=== PATIENT | male | born 1980 | race African-American/Black ===

== ENCOUNTER 2016-07-01 00:12 | Inpatient (IN) ==
[2016-07-01] MEDS ORDERED: ZOFRAN ODT PO ONE (00:47)
--- NOTE | 2016-07-01 01:08 | PROVIDER DOCUMENTATION ---
HPI-EENT General - General Chief Complaint: Fever Stated Complaint: CHEST PAIN Time Seen by Provider: 07/01/16 00:46 Source: patient Allergies/Adverse Reactions: Patient Allergies Allergy/AdvReac Type Severity Reaction Status Date / Time No Known Allergies Allergy Verified 11/07/15 23:51 Home Medications: Home Medication List Medication Instructions Recorded Confirmed Last Taken Type Metoprolol [Lopressor] 25 mg PO DAILY #30 tablet 09/07/14 11/07/15 11/03/15 Rx Oxycodone HCl/Acetaminophen 1 each PO Q4H PRN PRN #20 tablet 11/08/15 Unknown Rx [Percocet 7.5-325 mg Tablet] - History of Present Illness-EENT General Nature of Presenting Problem: 36 y/o BM presents to the ED with c/o sore throat x 3 days. Pt states was seen by his PCP on Friday (Dr. Portia Escobar) and given steroid IM, two other unknown shots, and an Rx for Zpack. Pt states that he has been taking medication as directed. 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 Also states generalized weakness and heart racing. Review of Systems - Adult - REVIEW OF SYSTEMS - ADULT Constitutional: reports: see HPI, fever. denies: chills Eyes: reports: no symptoms reported. denies: blurred vision, double vision Ears, Nose, Mouth & Throat: reports: see HPI, throat pain. denies: ear pain, loose teeth Cardiovascular: reports: see HPI, palpitations. denies: chest pain Respiratory: reports: no symptoms reported. denies: cough, dyspnea on exertion , shortness of breath Gastrointestinal: reports: see HPI, nausea, vomiting. denies: abdominal pain, diarrhea Genitourinary: reports: frequency. denies: dysuria, hematuria Musculoskeletal: reports: no symptoms reported. denies: joint pain, joint swelling Integumentary: reports: no symptoms reported. denies: nail changes, rash Neurological: reports: no symptoms reported. denies: numbness, paresthesia Psychiatric: reports: no symptoms reported Endocrine: reports: no symptoms reported. denies: cold intolerance, heat intolerance Hematologic/Lymphatic: reports: no symptoms reported. denies: easy bruising, prolonged bleeding Allergic/Immunologic: reports: no symptoms reported All Other Systems: Reviewed and Negative Past History - Adult - PAST MEDICAL HISTORY-ADULT Review of Records: reports: Nursing Assessment Review, Medications Reviewed Cardiovascular: reports: other (SVT) Psychiatric: reports: anxiety - PRIOR SURGERIES/PROCEDURES Surgical/Procedure History: reports: orthopedic (extremity) (patellar tendon) - IMMUNIZATION STATUS Childhood Immunizations: See Nurse Assessment Flu Vaccine: See Nurse Assessment - SOCIAL HISTORY Smoking: denies Physical Exam- EENT - Physical Exam EENT Initial Vital Signs Reviewed: Yes General Appearance: alert, moderate distress Eye Exam: bilateral eye: normal inspection Ear Exam: bilateral ear: auricle normal Nasal Exam: normal inspection. negative: sinus tenderness Throat Exam: pharynx swelling, tonsillar swelling, uvula swelling, other ( extreme swelling in pharynx; no ability to see past uvula and tonsils). negative: pharynx normal (erythema with white plaques throughout mouth.) Neck: supple, normal inspection, lymphadenopathy Respiratory: lungs clear, normal breath sounds. negative: crackles, rales, rhonchi, stridor, wheezing Cardiovascular: tachycardia. negative: bradycardia Abdominal Exam: normal bowel sounds, soft, tenderness (generalized, mild). negative: distended, guarding, rigid Lymphatic: cervical node tenderness Back Exam: normal inspection Extremity: normal inspection Integumentary: normal color, normal turgor Neurologic: negative: aphasia Psych/Mental Status: normal mood/affect Progress - PLAN OF CARE/RESULTS Progress/Plan/Lab Results: Vital Signs - 8 hr 07/01/16 00:17 07/01/16 03:49 Temperature 100.8 F H 98.6 F Pulse Rate 107 H 107 H Respiratory Rate 20 18 Blood Pressure 155/104 146/95 O2 Sat by Pulse Oximetry 100 96 Laboratory Results - last 24 hr 07/01/16 07/01/16 07/01/16 00:30 00:30 01:05 WBC RBC Hgb Hct MCV MCH MCHC RDW Std Deviation Plt Count MPV Immature Gran % (Auto) Neut % (Auto) Lymph % (Auto) [place] % (Auto) Eos % (Auto) Baso % (Auto) Immature Gran # (Auto) Neut # (Auto) Lymph # (Auto) [place] # (Auto) Eos # (Auto) Baso # (Auto) PT INR APTT (Factor Assay) Specimen Type Sample Site pH pCO2 pO2 HCO3 Base Excess Oxyhemoglobin ABG O2 Sat (Calculated) ABG O2 Saturation ABG Carboxyhemoglobin ABG Methemoglobin Erick Test A-a O2 Difference Total Hemoglobin Lactate Blood Gas Modality FiO2 % Sodium Potassium Chloride Carbon Dioxide Anion Gap BUN Creatinine BUN/Creatinine Ratio Glucose Estimat Average Glucose Hemoglobin A1c Calculated Osmolality Calcium Total Bilirubin AST ALT Alkaline Phosphatase Creatine Kinase Troponin T Total Protein Albumin Globulin Albumin/Globulin Ratio Plasma Lactate Urine Source Cancelled Urine Color Cancelled Urine Clarity Urine Turbidity Cancelled Urine pH Cancelled Ur Specific [place] Cancelled Urine Protein Cancelled Ur Glucose (Stick) Cancelled Urine Ketones Ur Ketones (Stick) Cancelled Urine Blood Cancelled Urine Nitrite Cancelled Urine Bilirubin Cancelled Urine Urobilinogen Urobilinogen Dipstick Cancelled Urine Leukocytes Cancelled Urine WBC (Auto) Cancelled Urine RBC (Auto) Cancelled U Epithel Cells (Auto) Cancelled Urine Bacteria (Auto) Cancelled Urine Microscopic RBC Urine WBC Urine Microscopic WBC Ur Epithelial Cells Urine Bacteria Urine Glucose Acetone Level Influenza A (Rapid) NEGATIVE Influenza B (Rapid) NEGATIVE Group A Strep Rapid NEGATIVE 07/01/16 07/01/16 07/01/16 01:05 01:07 01:07 WBC RBC Hgb Hct MCV MCH MCHC RDW Std Deviation Plt Count MPV Immature Gran % (Auto) Neut % (Auto) Lymph % (Auto) [place] % (Auto) Eos % (Auto) Baso % (Auto) Immature Gran # (Auto) Neut # (Auto) Lymph # (Auto) [place] # (Auto) Eos # (Auto) Baso # (Auto) PT INR APTT (Factor Assay) Specimen Type Sample Site pH pCO2 pO2 HCO3 Base Excess Oxyhemoglobin ABG O2 Sat (Calculated) ABG O2 Saturation ABG Carboxyhemoglobin ABG Methemoglobin Erick Test A-a O2 Difference Total Hemoglobin Lactate Blood Gas Modality FiO2 % Sodium Potassium Chloride Carbon Dioxide Anion Gap BUN Creatinine BUN/Creatinine Ratio Glucose Estimat Average Glucose Hemoglobin A1c Calculated Osmolality Calcium Total Bilirubin AST ALT Alkaline Phosphatase Creatine Kinase 177 Troponin T < 0.010 Total Protein Albumin Globulin Albumin/Globulin Ratio Plasma Lactate Urine Source CLEAN CATCH Urine Color YELLOW Urine Clarity CLEAR Urine Turbidity Urine pH 5.0 Ur Specific [place] 1.015 Urine Protein TRACE A Ur Glucose (Stick) Urine Ketones 3+(Large) A Ur Ketones (Stick) Urine Blood 1+ A Urine Nitrite NEGATIVE Urine Bilirubin NEGATIVE Urine Urobilinogen NORMAL Urobilinogen Dipstick Urine Leukocytes Urine WBC (Auto) Urine RBC (Auto) U Epithel Cells (Auto) Urine Bacteria (Auto) Urine Microscopic RBC <10 Urine WBC NEGATIVE Urine Microscopic WBC <10 Ur Epithelial Cells <10 Urine Bacteria 1+ Urine Glucose 3+(500 mg/dL) A Acetone Level Influenza A (Rapid) Influenza B (Rapid) Group A Strep Rapid 07/01/16 07/01/16 07/01/16 01:07 01:07 01:07 WBC 21.48 H RBC 5.55 Hgb 15.8 Hct 47.6 MCV 85.8 MCH 28.5 MCHC 33.2 RDW Std Deviation 12.2 Plt Count 408 H MPV 12.0 H Immature Gran % (Auto) 0.2 Neut % (Auto) 85.9 H Lymph % (Auto) 9.1 L [place] % (Auto) 4.4 Eos % (Auto) 0.0 Baso % (Auto) 0.4 Immature Gran # (Auto) 0.05 H Neut # (Auto) 18.45 H Lymph # (Auto) 1.95 [place] # (Auto) 0.94 H Eos # (Auto) 0.01 Baso # (Auto) 0.08 PT 14.1 INR 1.06 APTT (Factor Assay) 25.4 Specimen Type Sample Site pH pCO2 pO2 HCO3 Base Excess Oxyhemoglobin ABG O2 Sat (Calculated) ABG O2 Saturation ABG Carboxyhemoglobin ABG Methemoglobin Erick Test A-a O2 Difference Total Hemoglobin Lactate Blood Gas Modality FiO2 % Sodium 135 L Potassium 4.8 Chloride 88 L Carbon Dioxide 16 L Anion Gap 28 BUN 23 H Creatinine 1.3 H BUN/Creatinine Ratio 18 Glucose 682 H* Estimat Average Glucose Hemoglobin A1c Calculated Osmolality 316 Calcium 10.7 H Total Bilirubin 0.50 AST 15 ALT 39 Alkaline Phosphatase 158 H Creatine Kinase Troponin T Total Protein 9.4 H Albumin 5.3 H Globulin 4.0 Albumin/Globulin Ratio 1.0 Plasma Lactate Urine Source Urine Color Urine Clarity Urine Turbidity Urine pH Ur Specific [place] Urine Protein Ur Glucose (Stick) Urine Ketones Ur Ketones (Stick) Urine Blood Urine Nitrite Urine Bilirubin Urine Urobilinogen Urobilinogen Dipstick Urine Leukocytes Urine WBC (Auto) Urine RBC (Auto) U Epithel Cells (Auto) Urine Bacteria (Auto) Urine Microscopic RBC Urine WBC Urine Microscopic WBC Ur Epithelial Cells Urine Bacteria Urine Glucose Acetone Level Influenza A (Rapid) Influenza B (Rapid) Group A Strep Rapid 07/01/16 07/01/16 07/01/16 01:07 01:07 03:06 WBC RBC Hgb Hct MCV MCH MCHC RDW Std Deviation Plt Count MPV Immature Gran % (Auto) Neut % (Auto) Lymph % (Auto) [place] % (Auto) Eos % (Auto) Baso % (Auto) Immature Gran # (Auto) Neut # (Auto) Lymph # (Auto) [place] # (Auto) Eos # (Auto) Baso # (Auto) PT INR APTT (Factor Assay) Specimen Type ARTERIAL Sample Site L RADIAL pH 7.31 L pCO2 32 L pO2 80 HCO3 17.9 L Base Excess -8.9 L Oxyhemoglobin 94.1 L ABG O2 Sat (Calculated) 20.7 ABG O2 Saturation 97.8 ABG Carboxyhemoglobin 2.50 ABG Methemoglobin 1.3 Erick Test YES A-a O2 Difference 30.0 Total Hemoglobin 15.6 Lactate 2.10 Blood Gas Modality ROOM AIR FiO2 % 21.0 Sodium Potassium Chloride Carbon Dioxide Anion Gap BUN Creatinine BUN/Creatinine Ratio Glucose Estimat Average Glucose 235 Hemoglobin A1c 9.8 H Calculated Osmolality Calcium Total Bilirubin AST ALT Alkaline Phosphatase Creatine Kinase Troponin T Total Protein Albumin Globulin Albumin/Globulin Ratio Plasma Lactate Urine Source Urine Color Urine Clarity Urine Turbidity Urine pH Ur Specific [place] Urine Protein Ur Glucose (Stick) Urine Ketones Ur Ketones (Stick) Urine Blood Urine Nitrite Urine Bilirubin Urine Urobilinogen Urobilinogen Dipstick Urine Leukocytes Urine WBC (Auto) Urine RBC (Auto) U Epithel Cells (Auto) Urine Bacteria (Auto) Urine Microscopic RBC Urine WBC Urine Microscopic WBC Ur Epithelial Cells Urine Bacteria Urine Glucose Acetone Level SMALL A Influenza A (Rapid) Influenza B (Rapid) Group A Strep Rapid 07/01/16 03:28 WBC RBC Hgb Hct MCV MCH MCHC RDW Std Deviation Plt Count MPV Immature Gran % (Auto) Neut % (Auto) Lymph % (Auto) [place] % (Auto) Eos % (Auto) Baso % (Auto) Immature Gran # (Auto) Neut # (Auto) Lymph # (Auto) [place] # (Auto) Eos # (Auto) Baso # (Auto) PT INR APTT (Factor Assay) Specimen Type Sample Site pH pCO2 pO2 HCO3 Base Excess Oxyhemoglobin ABG O2 Sat (Calculated) ABG O2 Saturation ABG Carboxyhemoglobin ABG Methemoglobin Erick Test A-a O2 Difference Total Hemoglobin Lactate Blood Gas Modality FiO2 % Sodium Potassium Chloride Carbon Dioxide Anion Gap BUN Creatinine BUN/Creatinine Ratio Glucose Estimat Average Glucose Hemoglobin A1c Calculated Osmolality Calcium Total Bilirubin AST ALT Alkaline Phosphatase Creatine Kinase Troponin T Total Protein Albumin Globulin Albumin/Globulin Ratio Plasma Lactate 2.6 H Urine Source Urine Color Urine Clarity Urine Turbidity Urine pH Ur Specific [place] Urine Protein Ur Glucose (Stick) Urine Ketones Ur Ketones (Stick) Urine Blood Urine Nitrite Urine Bilirubin Urine Urobilinogen Urobilinogen Dipstick Urine Leukocytes Urine WBC (Auto) Urine RBC (Auto) U Epithel Cells (Auto) Urine Bacteria (Auto) Urine Microscopic RBC Urine WBC Urine Microscopic WBC Ur Epithelial Cells Urine Bacteria Urine Glucose Acetone Level Influenza A (Rapid) Influenza B (Rapid) Group A Strep Rapid Orders Category Date Time Status Admit - [facility] Routine AdmDCTranf 07/01/16 03:20 Ordered Activity - Bed Rest with BRP ORDERED Care 07/01/16 03:20 Active Resuscitation Status Routine Care 07/01/16 03:20 Ordered Saline Loc DIRECTED Care 07/01/16 00:55 Completed Vital Signs Order Q 8-HR ASSESS Care 07/01/16 03:20 Active NPO Diet 07/01/16 00:55 Completed NPO Diet 07/01/16 03:26 Active CHEST-2 VIEWS [RAD] Stat Exams 07/01/16 00:21 Taken NECK W/CONTRAST [CT] Stat Exams 07/01/16 02:08 Taken A1C HGB W EST AVG GLUCOSE [CHEM] Stat Lab 07/01/16 01:07 Completed ABG [RESP] Routine Lab 07/01/16 03:06 Completed BASIC METABOLIC PANEL [CHEM] Timed Lab 07/01/16 12:00 Ordered BLOOD CULTURE [BLDCUL] Stat Lab 07/01/16 02:37 Ordered CBC WITH ELECTRONIC DIFF [HEME] Stat Lab 07/01/16 01:07 Completed CK PROFILE [SP CHEM] Stat Lab 07/01/16 01:07 Completed COMPREHENSIVE METABOLIC PANEL [CHEM] Stat Lab 07/01/16 01:[address] Stat Lab 07/01/16 00:[address] Stat Lab 07/01/16 00:30 Completed Ketone [ACETONE SERUM] [CHEM] Stat Lab 07/01/16 01:07 Completed LACTATE, PLASMA [CHEM] Stat Lab 07/01/16 03:28 Completed PT [PROTIME WITH INR PL] [COAG] Stat Lab 07/01/16 01:[address] [COAG] Stat Lab 07/01/16 01:07 Completed TROPONIN T Stat Lab 07/01/16 01:[address] W/POSS RFLX CULT [URINALYSIS] Stat Lab 07/01/16 01:05 Completed 0.9% Sodium Chloride Inj [Ns] 1,000 ml Med 07/01/16 03:20 Active IV 250 mls/hr 0.9% Sodium Chloride Inj [Ns] 1,000 ml Med 07/01/16 02:36 Discontinued IV 999 mls/hr Acetaminophen [Tylenol] Med 07/01/16 03:20 Active 650 mg PO Q6H PRN PRN CefTRIAXONE 1 GM/NS [Rocephin 1 gm/Ns] Med 07/01/16 03:30 Active 1 gm in 50 ml IV Q24H CefTRIAXONE 2 GM/NS [Rocephin 2 gm/Ns] Med 07/01/16 03:18 Discontinued 2 gm in 50 ml IV NOW Insulin Human Reg Dose ([address] [Humulin R Dose ([place] Med 07/01/16 03:20 Discontinued )] 1 dose SUBQ NOW ONE Insulin Human Regular ([place] [Humulin R ([place])] Med 07/01/16 03:28 Discontinued 1 units .ROUTE .STK-MED ONE Insulin Human Regular [Humulin R] Med 07/01/16 03:18 Discontinued 10 unit SUBQ NOW ONE Ketorolac [Toradol] Med 07/01/16 01:35 Discontinued 30 mg IV NOW ONE Metoclopramide [Reglan] Med 07/01/16 01:35 Discontinued 10 mg IV NOW ONE Morphine Med 07/01/16 01:35 Discontinued 2 mg IV NOW ONE Morphine Med 07/01/16 03:20 Active 2 mg IV Q2H PRN PRN Ondansetron Odt [Zofran Odt] Med 07/01/16 00:47 Discontinued 4 mg PO NOW ONE Ondansetron [Zofran] Med 07/01/16 03:20 Active 4 mg IV Q4H PRN PRN EKG [EKG] Stat Ther 07/01/16 01:07 Draft Transfer/Admit Order [TRANSFER] Routine Transfer 07/01/16 03:27 Ordered Result Diagrams: 07/01/16 01:07 07/01/16 01:07 - CHANGE OF SHIFT REPORT (ED Provider) Report Given and Care Transferred to:: Dr. Vazquez Time of Transfer: 03:10 Items Pending: Labs, CT/MRI Results Comment: new onset diabetes, pharyngitis/tonsillitis Departure - Departure Time of Disposition Decision: 04:12 DIAGNOSIS: Sepsis Qualifiers: Sepsis type: Streptococcus, unspecified Qualified Code(s): A40.9 - Streptococcal sepsis, unspecified; A40 - Streptococcal sepsis DM (diabetes mellitus) type 2, uncontrolled, with ketoacidosis Qualifiers: Diabetes mellitus complication detail: without coma Diabetes mellitus retirement insulin use: without superintendent terminal use Qualified Code(s): E13.10 - Other specified diabetes mellitus with ketoacidosis without coma Disposition: ADMITTED INPATIENT 09 Certified Medical Emergency: Emergent Condition: Fair - Critical Care Note This patient required my direct personal management.: No Attestation - Physician/ YAMEL Attestation Patient care was provided by Advanced Practice Provider:: Yes Advanced Practice Provider:: Amy Carrillo Advanced Practice Provider documentation review:: The Mid-level provider documentation, treatment plan and medical decision making was reviewed by the physician who agrees with all treatment and medical decision making by the MLP.
--- NOTE | 2016-07-01 01:20 | EKG Report ---
Test Performed on : 07/01/2016 01:09:57 AM Test Reason : Chest Pain Blood Pressure : / mmHG Vent. Rate : 113 BPM Atrial Rate : 113 BPM P-R Int : 162 ms QRS Dur : 090 ms QT Int : 352 ms P-R-T Axes : 046 061 012 degrees QTc Int : 482 ms Sinus tachycardia. Otherwise normal ECG When compared with ECG of 07-SEP-2014 14:42, No significant change was found Unconfirmed Result
[2016-07-01] MEDS ORDERED: TORADOL IV ONE (01:35)
[2016-07-01] MEDS ORDERED: REGLAN IV ONE (01:35)
[2016-07-01] MEDS ORDERED: MORPHINE IV ONE (01:35)
[2016-07-01 01:42] LABS: BASO% 0.4 % (0.0-0.8); EOS# 0.01 X1000 (0.0-0.7); HEMATOCRIT 47.6 % (42.0-52.0); HEMOGLOBIN 15.8 g/dL (14.0-18.0); IMM GRAN# 0.05 X1000 (0.0-0.04); IMM GRAN% 0.2 % (0.0-0.5); LYMPH# 1.95 X1000 (1.2-3.4); LYMPH% 9.1 % (20.5-51.1); MANUAL DIFF NEEDED? NO; MCH 28.5 PG (27-31); MCHC 33.2 g/dL (33-37); MCV 85.8 FL (81-99); MONO# 0.94 X1000 (0.11-0.59); MONO% 4.4 % (1.7-9.3); NEUT% 85.9 % (42.2-75.2); PLT 408 X1000 (130-400); RBC 5.55 XMIL (4.7-6.1)
[2016-07-01 01:54] LABS: URINE CULTURE PL NEEDED? NO; URINE SOURCE CLEAN CATCH
[2016-07-01 02:10] LABS: BILIRUBIN URINE NEGATIVE (NEGATIVE); BLOOD URINE 1+ (NEGATIVE); CLARITY CLEAR (CLEAR); COLOR YELLOW; LEUKOCYTES URINE NEGATIVE (NEGATIVE); NITRITE URINE NEGATIVE (NEGATIVE); PROTEIN URINE TRACE mg/dL (NEGATIVE); SP GRAVITY URINE 1.015; URINE EPITHELIAL CELLS <10 /HPF (<10); URINE RBC <10 /HPF (<10); URINE WBC <10 /HPF (<10); UROBILINOGEN URINE NORMAL
[2016-07-01 02:22] LABS: INR 1.06 (0.86-1.15); PROTIME 14.1 Seconds (12.1-15.5)
[2016-07-01 02:23] LABS: PTT PL 25.4 Seconds (22.6-43.9)
[2016-07-01] MEDS ORDERED: NS 1,000 ML IV ONE ×3 (02:36→11:09)
[2016-07-01 02:38] LABS: CHLORIDE 88 mmol/L (98-107); POTASSIUM 4.8 mmol/L (3.5-5.1); SODIUM 135 mmol/L (136-145)
[2016-07-01 02:39] LABS: ALBUMIN 5.3 g/dL (3.5-5.0); ALKALINE PHOSPHATASE 158 U/L (32-122); BUN 23 mg/dL (8-22); CALCIUM 10.7 mg/dL (8.8-10.2); GOT 15 U/L (10-34); GPT 39 U/L (10-44); TCO2 16 mmol/L (25-35); TOTAL PROTEIN 9.4 g/dL (6.3-8.3)
[2016-07-01 02:41] LABS: COSMO 316
[2016-07-01 02:42] LABS: AGAP 28
[2016-07-01] MEDS ORDERED: ROCEPHIN 2 GM/NS 2 GM/50 ML IVPB IV ONE (03:18)
[2016-07-01] MEDS ORDERED: HUMULIN R SUBQ ONE (03:18)
[2016-07-01] MEDS ORDERED: TYLENOL PO PRN (03:20)
[2016-07-01] MEDS ORDERED: HUMULIN R DOSE (PARKWAY) SUBQ ONE (03:20)
[2016-07-01] MEDS ORDERED: ZOFRAN IV PRN (03:20)
[2016-07-01] MEDS ORDERED: MORPHINE IV PRN ×2 (03:20→07:14)
[2016-07-01 03:25] LABS: BE -8.9 mmoll (-3.0-3.0); BLOOD TYPE ARTERIAL; DRAW SITE L RADIAL; METHB 1.3 % (0.0-1.5); O2(CT) 20.7 mL/dL (15.0-23.0); PCO2(98.6) 32 mmHg (35-45); PO2(98.6) 80 mmHg (60-100); SAMPLE BLOOD; SAO2 97.8 % (95.0-100.0); THB 15.6 g/dL (11.5-17.4); pH(98.6) 7.31 (7.35-7.45)
[2016-07-01 03:27] LABS: ALLEN TEST YES; MODALITY ROOM AIR
[2016-07-01] MEDS ORDERED: HUMULIN R (PARKWAY) ONE (03:28)
[2016-07-01 03:39] LABS: HEMOGLOBIN A1C 9.8 % (4.8-6.0)
[2016-07-01] MEDS: ROCEPHIN 1 GM/NS 1 GM/50 ML IVPB IV SCH (06:26)
[2016-07-01] MEDS ORDERED: PNEUMOVAX 23 IM ONE (07:04)
--- NOTE | 2016-07-01 07:53 | Diag Imaging Result Document ---
PROCEDURE NAME: CHEST-2 VIEWS - 07/01/2016 FRONTAL AND LATERAL CHEST, TWO VIEWS: COMPARISON: Compared to 09/20/2014. FINDINGS: The lungs are well expanded. The heart is not enlarged. The vessels are not distended. There are no infiltrates. No pleural effusions. IMPRESSION: No pneumonia.
--- NOTE | 2016-07-01 08:08 | Diag Imaging Result Document ---
PROCEDURE NAME: NECK W/CONTRAST - 07/01/2016 CT NECK WITH INTRAVENOUS CONTRAST: FINDINGS: No sinus opacification. No air fluid levels. Normal parotid and submandibular glands. Normal larynx and thyroid. Mildly prominent tonsillar tissue. No precervical soft tissue swelling. Normal epiglottis. There is a tiny 2-3 mm nodular density in the left lung apex. The apices are otherwise normal. There are scattered small lymph nodes in the neck. No abscess. IMPRESSION: 1. There are multiple lymph nodes scattered bilaterally within the neck. 2. Mildly prominent tonsils. 3. No abscess. A preliminary report was given at 3:34 a.m..
[2016-07-01 10:38] LABS: HEMATOCRIT 44.9 % (42.0-52.0); HEMOGLOBIN 14.9 g/dL (14.0-18.0); MCH 28.5 PG (27-31); MCHC 33.2 g/dL (33-37); MCV 85.9 FL (81-99); MPV 11.8 FL (7.4-10.4); RBC 5.23 XMIL (4.7-6.1)
[2016-07-01 11:07] LABS: AGAP 23; CHLORIDE 93 mmol/L (98-107); POTASSIUM 4.8 mmol/L (3.5-5.1); SODIUM 134 mmol/L (136-145); TCO2 18 mmol/L (25-35)
[2016-07-01 11:08] LABS: BUN 25 mg/dL (8-22); CALCIUM 9.8 mg/dL (8.8-10.2); COSMO 290
[2016-07-01] MEDS ORDERED: MAGNESIUM SULFATE 2 GM/S.W.I. 2 GM/50 ML IVPB IV PRN (11:18)
[2016-07-01] MEDS ORDERED: SODIUM PHOSPHATE 30 MMOL in D5W 250 ML IV PRN (11:18)
[2016-07-01] MEDS ORDERED: HUMULIN R IV ONE (11:18)
[2016-07-01] MEDS ORDERED: HUMULIN R 100 UNIT in NS 99 ML IV SCH (11:18)
[2016-07-01] MEDS ORDERED: D50W SYRINGE IV PRN (11:18)
[2016-07-01] MEDS: HUMALOG DOSE (PARKWAY) SUBQ SCH ×3 (11:35→21:05)
[2016-07-01] MEDS ORDERED: DIFLUCAN 200 MG/NS 200 MG/100 ML IVPB IV ONE (11:53)
[2016-07-01] MEDS ORDERED: SODIUM CHLORIDE 0.9% INJ SCH (12:00)
[2016-07-01] MEDS ORDERED: MYCOSTATIN SUSP PO ONE (12:00)
--- NOTE | 2016-07-01 12:43 | HISTORY AND PHYSICAL ---
Delete please MTDD
[2016-07-01] MEDS: PROTONIX IV SCH (13:04)
[2016-07-01] MEDS: NS 1,000 ML IV SCH ×2 (13:04→19:28)
[2016-07-01 13:07] LABS: BE -7.2 mmoll (-3.0-3.0); BLOOD TYPE ARTERIAL; METHB 1.4 % (0.0-1.5); O2(CT) 20.6 mL/dL (15.0-23.0); PCO2(98.6) 31 mmHg (35-45); PO2(98.6) 83 mmHg (60-100); SAMPLE BLOOD; SAO2 97.8 % (95.0-100.0); THB 15.5 g/dL (11.5-17.4); pH(98.6) 7.35 (7.35-7.45)
[2016-07-01 13:13] LABS: ALLEN TEST YES; DRAW SITE L RADIAL; MODALITY ROOM AIR
--- NOTE | 2016-07-01 13:34 | HISTORY AND PHYSICAL ---
DATE OF ADMISSION: 07/01/2016. CHIEF COMPLAINT: 1. Sore throat. 2. Chest pain. 3. Generalized weakness. HISTORY OF PRESENT ILLNESS: This is a 36-year-old, male with a prior history of hypertension, chronic pain, who presented to the emergency room complaining of increasing sore throat with chest pain that he describes as clavicular up into the neck, as well as generalized weakness. He states he was seen at his primary care physician's office on Friday. Given 3 shots, 1 that he feels was a steroid, as well as a Z-Gui. He has been taking the medication with symptoms worsening, developing vomiting and palpitations prior to coming to the emergency room. He did have a temperature of 100.8 degrees on arrival with a heart rate of 113. An EKG revealed a sinus tachycardia. A CT of the neck revealed multiple lymph nodes scattered bilaterally within the neck with mildly prominent tonsils with a normal larynx, thyroid, epiglottis , and no precervical soft tissue swelling. No abscess. White count was noted to be 21 with a blood sugar of 682 and a hemoglobin A1c of 9.8 as well as acetone positive. He was given a liter of fluid along with 10 units of regular insulin, Rocephin, and admitted for further evaluation and treatment. PAST MEDICAL HISTORY: 1. Hypertension. 2. Chronic pain. 3. SVT. PAST SURGICAL HISTORY: Patellar tendon repair. SOCIAL HISTORY: Denies alcohol, tobacco, or illicit drug use. ALLERGIES: No known drug allergies. HOME MEDICATIONS: 1. Ambien 10 mg at bedtime. 2. Phenergan 5 mL every 6 hours p.r.n. 3. Lopressor 100 p.o. b.i.d. 4. Alprazolam 1 mg t.i.d. 5. Oxycodone ER 40 mg b.i.d. 6. Singulair 10 daily. 7. Percocet 7.5 every 4 hours p.r.n. REVIEW OF SYSTEMS: A 14 point review of systems is discussed with the patient, with pertinent positives stated in the History of Present Illness. He denied dizziness, syncope, diarrhea, constipation, black or bloody vomitus, black or bloody stools, any PND, orthopnea, any hematuria, dysuria, polyuria, increased thirst. PHYSICAL EXAMINATION: GENERAL: This is a 36-year-old, male, who is lying in the bed. PSYCH: In no distress. VITAL SIGNS: Blood pressure was 162/94 with a heart rate of 102. Respirations are 20, temperature is 97.7 degrees oral with a room air saturation of 98%. HEENT: Head is normocephalic, atraumatic. Pupils equal, round, react to light. EOMs are intact. Sclerae anicteric. Mucous membranes are moist with white plaques noted to membranes, tongue, throat He does have pharyngeal tonsillar swelling with some uvular swelling. NECK: Supple with submandibular and tonsillar lymph nodes palpated. NECK: Supple with trachea midline. CARDIOVASCULAR: Regular rate and rhythm S1, S2 appreciated. PULMONARY: Breath sounds are clear. No increased work of breathing noted. GASTROINTESTINAL: Abdomen has some mild epigastric tenderness with he is nondistended with bowel sounds in all 4 quadrants. BACK: No CVAT. No spine tenderness. EXTREMITIES: No clubbing, cyanosis, or edema. Calves nontender and pulses are palpable x4. SKIN: Warm and dry. No rashes or lesions noted. DIAGNOSTICS: CBC: WBC is 21.4 with hemoglobin 15.8, hematocrit 47.6 and platelets of 408,000. Chem: Sodium is 135 with a potassium of 4.8, BUN 23, creatinine 1.3 with a glucose of 682. Lactate is 2.6 with an A1c of 9.8. Acetone is small flu A and B and rapid strep were negative. ABGs: PH is 7.31, with a pCO2 of 32, PO2 of 80, a bicarb of 17.9 with a lactate of 2.1 on room air. Blood cultures: Pending. Throat cultures: Pending. CT of the neck: As stated above. ASSESSMENT AND PLAN: 1. Diabetic ketoacidosis and new onset diabetes. The patient states that he has never been told that he had an elevated blood sugar or any problems with his blood sugars and blood sugars over the last 2 years on previous emergency room visits have been 99-170. He has a family history remotely in a cousin. As he is in diabetic ketoacidosis, we will give another liter IV hydration and continue with hydration where he will be placed on diabetic ketoacidosis protocol. 2. Acute kidney injury. This is most likely secondary to intervascular volume depletion secondary to diabetic ketoacidosis. We will hydrate and trend labs. 3. Systemic inflammatory response syndrome. Likely sepsis most likely secondary to tonsillitis. Blood cultures are pending as well as a throat culture and rapid strep was negative. We will continue with IV hydration as well as IV Rocephin. A CT of the neck revealed no abscess, just enlarged tonsils. We will continue to follow this. We will trend labs. 4. Hypertension. We will continue his Lopressor. 5. Chronic pain. Once his nausea and vomiting subside, we will add his home medications on. 6. Nausea and vomiting. We will give IV Zofran. Start with diabetic clear liquids and advance as tolerated. 7. New onset diabetes mellitus. We will arrange for a dietitian to see the patient for diabetic teaching. Further treatments pending hospital course. Thank you. Dictated by FROYLAN Edgar for Bruce Clements MD cc: FROYLAN Edgar MD likely has oral candidiasis related to uncontrolled diabetes, agree with early DKA and will place on insulin gtt as above [place] MTDD
[2016-07-01 15:29] LABS: AGAP 19; BUN 20 mg/dL (8-22); CALCIUM 9.1 mg/dL (8.8-10.2); CHLORIDE 98 mmol/L (98-107); COSMO 285; MAGNESIUM 2.7 mg/dL (1.5-2.7); POTASSIUM 3.9 mmol/L (3.5-5.1); SODIUM 135 mmol/L (136-145); TCO2 17 mmol/L (25-35)
[2016-07-01] MEDS: MYCOSTATIN SUSP PO SCH ×2 (16:09→21:05)
[2016-07-01 20:31] LABS: AGAP 17; BUN 18 mg/dL (8-22); CALCIUM 9.4 mg/dL (8.8-10.2); CHLORIDE 99 mmol/L (98-107); COSMO 279; MAGNESIUM 2.6 mg/dL (1.5-2.7); POTASSIUM 3.7 mmol/L (3.5-5.1); SODIUM 133 mmol/L (136-145); TCO2 17 mmol/L (25-35)
[2016-07-01] MEDS: LOPRESSOR PO SCH (21:06)
[2016-07-01] MEDS: AMBIEN PO SCH (22:23)
[2016-07-02 00:02] LABS: AGAP 14; BUN 18 mg/dL (8-22); CHLORIDE 101 mmol/L (98-107); COSMO 281; MAGNESIUM 2.5 mg/dL (1.5-2.7); POTASSIUM 3.7 mmol/L (3.5-5.1); SODIUM 135 mmol/L (136-145); TCO2 20 mmol/L (25-35)
[2016-07-02] MEDS: NS 1,000 ML IV SCH ×4 (03:00→19:43)
[2016-07-02] MEDS: ROCEPHIN 1 GM/NS 1 GM/50 ML IVPB IV SCH (03:19)
[2016-07-02] MEDS: HUMALOG DOSE (PARKWAY) SUBQ SCH ×4 (06:41→21:16)
[2016-07-02 06:46] LABS: HEMATOCRIT 42.3 % (42.0-52.0); HEMOGLOBIN 13.8 g/dL (14.0-18.0); MCH 28.3 PG (27-31); MCHC 32.6 g/dL (33-37); MCV 86.9 FL (81-99); MPV 12.1 FL (7.4-10.4); RBC 4.87 XMIL (4.7-6.1)
[2016-07-02 06:52] LABS: AGAP 15; BUN 16 mg/dL (8-22); CALCIUM 9.1 mg/dL (8.8-10.2); CHLORIDE 103 mmol/L (98-107); COSMO 280; MAGNESIUM 2.4 mg/dL (1.5-2.7); SODIUM 136 mmol/L (136-145); TCO2 19 mmol/L (25-35)
[2016-07-02] MEDS ORDERED: LANTUS INSULIN (PARKWAY) SUBQ ONE (08:35)
[2016-07-02] MEDS ORDERED: DIFLUCAN 100 MG/NS 100 MG/50 ML IVPB IV SCH (09:00)
[2016-07-02 09:10] LABS: AGAP 14; BUN 16 mg/dL (8-22); CALCIUM 8.9 mg/dL (8.8-10.2); CHLORIDE 102 mmol/L (98-107); COSMO 279; MAGNESIUM 2.3 mg/dL (1.5-2.7); POTASSIUM 3.8 mmol/L (3.5-5.1); SODIUM 135 mmol/L (136-145); TCO2 19 mmol/L (25-35)
[2016-07-02] MEDS: LOPRESSOR PO SCH ×2 (09:54→20:55)
[2016-07-02] MEDS: MYCOSTATIN SUSP PO SCH ×4 (09:55→20:55)
[2016-07-02] MEDS: PROTONIX IV SCH (12:21)
--- NOTE | 2016-07-02 12:39 | PROGRESS NOTE ---
DATE: 07/02/2016 SUBJECTIVE: The patient feels better today. He states that his throat hurts much less today. He is taking and liquids with no difficulty. OBJECTIVE: Vital Signs: Blood pressure is 147/81, heart rate 74, respirations 19, temperature 97.7 degrees, with room air saturations of 97% to 98%. Cardiovascular: Regular rate and rhythm. S1 and S2 appreciated. Pulmonary: Breath sounds are clear, with no increased work of breathing noted. Gastrointestinal: Abdomen is soft, nontender, nondistended, with bowel sounds in all 4 quadrants. Extremities: No clubbing, cyanosis, or edema. Calves are nontender. Pulses palpable x4. HEENT: He has much less edema to his tonsils and uvula, with white patches that appear to be oral candidiasis present. LABORATORIES: WBC is 15.3 with hemoglobin 13.8, hematocrit 42.3, and platelets of 340,000. Sodium is 135, potassium 3.8, BUN 16, and creatinine 0.8, with blood sugars ranging from 236-250. Phosphorus is 1.8 with magnesium 2.3. Blood cultures and throat culture continue pending. ASSESSMENT AND PLAN: 1. Diabetic ketoacidosis with new onset diabetes mellitus. C-peptide is pending. We will start the patient on Lantus at 5 units and we will trend blood sugars, try to hopefully wean his insulin drip off. 2. Acute kidney injury. This has resolved after hydration. 3. Sepsis secondary to tonsillitis. We will continue with IV antibiotics. His white count is decreasing. We will continue to trend. Subjectively, he is improving. 4. Hypertension. Will continue his Lopressor. 5. Chronic pain. We will continue his home medication regimen. 6. New onset diabetes mellitus. We will consult dietitian for teaching. 7. Oral candidiasis. This is most likely related to uncontrolled diabetes. We will continue with swish and swallow and p.o. Diflucan. Dictated by FROYLAN Edgar for James Conti MD cc: FROYLAN Edgar MD
[2016-07-02 12:45] LABS: AGAP 13; BUN 16 mg/dL (8-22); CALCIUM 8.7 mg/dL (8.8-10.2); CHLORIDE 100 mmol/L (98-107); COSMO 277; MAGNESIUM 2.1 mg/dL (1.5-2.7); POTASSIUM 3.7 mmol/L (3.5-5.1); SODIUM 132 mmol/L (136-145); TCO2 19 mmol/L (25-35)
[2016-07-02] MEDS ORDERED: PERCOCET-5 PO PRN (21:56)
[2016-07-03] MEDS: AMBIEN PO SCH (00:08)
[2016-07-03] MEDS: ROCEPHIN 1 GM/NS 1 GM/50 ML IVPB IV SCH (03:15)
[2016-07-03] MEDS: NS 1,000 ML IV SCH (04:30)
[2016-07-03] MEDS: HUMALOG DOSE (PARKWAY) SUBQ SCH ×2 (06:31→11:29)
[2016-07-03] MEDS ORDERED: DIFLUCAN 100 MG/NS 100 MG/50 ML IVPB IV SCH (06:48)
[2016-07-03 07:06] LABS: HEMATOCRIT 39.1 % (42.0-52.0); HEMOGLOBIN 12.9 g/dL (14.0-18.0); MCH 28.4 PG (27-31); MCV 86.1 FL (81-99); MPV 11.9 FL (7.4-10.4); RBC 4.54 XMIL (4.7-6.1)
[2016-07-03 07:27] LABS: AGAP 16; ALBUMIN 3.3 g/dL (3.5-5.0); ALKALINE PHOSPHATASE 86 U/L (32-122); BUN 15 mg/dL (8-22); CALCIUM 8.1 mg/dL (8.8-10.2); CHLORIDE 103 mmol/L (98-107); COSMO 278; GOT 12 U/L (10-34); GPT 18 U/L (10-44); POTASSIUM 3.5 mmol/L (3.5-5.1); SODIUM 134 mmol/L (136-145); TCO2 16 mmol/L (25-35); TOTAL PROTEIN 5.7 g/dL (6.3-8.3)
[2016-07-03] MEDS ORDERED: GLUCOPHAGE PO SCH (08:00)
[2016-07-03] MEDS: MYCOSTATIN SUSP PO SCH ×2 (08:15→13:19)
[2016-07-03] MEDS: LOPRESSOR PO SCH (08:15)
[2016-07-03] MEDS ORDERED: DIFLUCAN PO SCH (09:00)
[2016-07-03] MEDS ORDERED: SINGULAIR PO SCH (09:00)
[2016-07-03] MEDS ORDERED: OMNICEF PO SCH (09:00)
[2016-07-03] MEDS ORDERED: LANTUS INSULIN (PARKWAY) SUBQ SCH (09:00)
[2016-07-03 11:23] VITALS: BP 139/90
[2016-07-03] MEDS: PROTONIX IV SCH (11:29)
--- NOTE | 2016-07-03 11:40 | DISCHARGE SUMMARY ---
ADMISSION DATE: 07/01/2016 DISCHARGE DATE: 07/03/2016 DIAGNOSES: 1. Diabetic ketoacidosis resolved. 2. Acute kidney injury most likely secondary to intravascular volume depletion secondary to diabetic ketoacidosis. This has resolved. 3. Systemic inflammatory response syndrome. Likely sepsis resolved. 4. Hypertension. 5. Chronic pain. 6. New onset diabetes mellitus with a hemoglobin A1c of 9.8, and a C-peptide of 1.3. HOSPITAL COURSE: Mr. Robins presented to the emergency room complaining of sore throat and chest pain that was actually described as just above his clavicle up into the neck. The pain was present with swallowing. He was noted to have tonsillitis with no abscess per CT scan, prominent tonsils with a normal larynx, thyroid epiglottis, no precervical soft tissue swelling. No abscess. On exam he did have white patches throughout his mouth, tongue and to the back of his throat. Labs revealed a white count of 21 with a glucose of 682, and a hemoglobin A1c of 9.8, and positive acetone. He denied ever being told he had elevated blood sugars or diabetes mellitus. family history positive only for a distant cousin. He was admitted to ICU, placed on DKA protocol. We were able to wean him down off of an insulin drip, and with Lantus insulin 70 units daily, blood sugars have been in the mid 200 range with him requiring about 24 hours of sliding scale insulin. He was placed on metformin 500 mg b.i.d. per protocol. Electrolytes were followed and repleted as appropriate. He did receive diabetic education from our finish repair worker. Antibiotic coverage of Rocephin IV was initially given. He was transitioned over to Omnicef b.i.d. which he will be discharged with. Oral candidiasis was treated with nystatin suspension as well as p.o. Diflucan. This is slowly improving and we did continue his home medications. PHYSICAL EXAMINATION: Cardiovascular: Regular rate and rhythm. S1 and S2 appreciated. Pulmonary: Breath sounds are clear with no increased work of breathing noted. Gastrointestinal: Abdomen is soft, nontender, nondistended. Bowel sounds in all 4 quadrants. Extremities: No clubbing, cyanosis, or edema. Calves are nontender. Pulses palpable x4. DISCHARGE MEDICATIONS: 1. Omnicef 300 mg p.o. b.i.d. 2. Diflucan 100 mg p.o. daily. 3. Metformin 500 mg b.i.d. with meals. 4. Lopressor 100 mg b.i.d. 5. Lantus. 6. SoloSTAR 7 units subcutaneous daily with prescriptions transmitted to [facility]. 7. He is to continue Percocet 7.5/325 q.4 hours p.r.n. 8. Alprazolam 1 mg 3 times a day. 9. Singulair 10 daily. 10. Ambien 10 at bedtime. 11. Oxycodone 40 mg b.i.d. 12. Prescriptions were not given for these medications. He is to call his prescribing physician for any refills or questions. ASSESSMENT AND PLAN: He needs to follow up with his primary care provider, Sebastian Escobar in one week for diabetic follow up, sooner as needed. He is being discharged home in stable condition with family members. TIME SPENT: This is a greater than 30 minute discharge. Dictated by FROYLAN Edgar for James Conti MD cc: FROYLAN Edgar MD Edwin K. Matthews, MD [facility]OSPITALAmy
== END 2016-07-03 13:18 | disposition home or self-care (01) ==
LOC: P.ED 00:12 → P.MEDSURG 04:01 → SUATTDRO 04:01 → P.ICU 11:18 → P.MEDSURG 07-02 21:30
PROVIDERS: ATTEND Family Medicine